=== PATIENT | male | born 1990 | race Caucasian/White ===

== ENCOUNTER 2016-05-06 16:14 | Emergency (ER) | payer OTHER ==
--- NOTE | 2016-05-06 16:56 | EDDOCDS ---
Physician Documentation [facility] Name: Ky Rangel Age: 26 yrs Sex: Male : 1990 Arrival Date: 05/06/2016 Time: 16:14 Bed Triage 3 Private MD: Naz Francis Disposition: 05/06/16 16:38 Discharged to Home/Self Care. Impression: Acute frontal sinusitis, Acute bronchitis. - Condition is Stable. - Discharge Instructions: Acute Bronchitis, Sinusitis, Adult. - Prescriptions for Claritin- D 12 Hour 5-120 mg Oral Tablet Sustained Release 12 hr - take 1 tablet by ORAL route every 12 hours As needed; 30 tablet. Ibuprofen 600 mg Oral Tablet - take 1 tablet by ORAL route every 6 hours As needed take with food; 30 tablet. Moxifloxacin 400 mg Oral Tablet - take 1 tablet by ORAL route once daily; 10 tablet. Albuterol Sulfate 90 mcg/actuation Inhalation HFA Aerosol Inhaler - inhale 2 puff by INHALATION route every 4 hours As needed; 1 Inhaler. - Medication Reconciliation, Local Pharmacy Hours form. - Follow up: Naz Francis; When: 1 week; Reason: Recheck today's complaints, Continuance of care. - Problem is an ongoing problem. - Symptoms are unchanged. Historical: - Allergies: Augmentin; Erythrocin; PENICILLINS; Amoxicillin; - Home Meds: 1. none - PMHx: Grand Mal Seizures; ADHD; Bipolar disorder; OCD; learning disabled; Blackouts; Anxiety; - PSHx: none; - Social history: Smoking status: Patient uses tobacco products, heavy tobacco smoker. No barriers to communication noted, The patient speaks fluent Occitan, Speaks appropriately for age. - Family history: No immediate family members are acutely ill. - : The pt / caregiver states he / she is not on anticoagulants. Home medication list is obtained from the patient. - Exposure Risk Screening:: None identified. Vital Signs: 05/06 16:16 BP 132 / 70; Pulse 96; Resp 18; Temp 98.1(O); Pulse Ox 97% on R/A; Weight 68.04 kg / ct3 150 lbs (R); Height 5 ft. 10 in. (177.80 cm) (R); Pain 10/10; 16:16 Body Mass Index 21.52 (68.04 kg, 177.80 cm) ct3 MDM: 16:47 Financial registration complete. gjjuarez 16:49 [facility] [place] Agreement was scanned into [employer] ([employer]) and attached to record. jose a Signatures: Efe Lynn, RN RN Elliot Hansen, MECHANICAL EXPERT MECHANICAL EXPERT Karyna VailRN RN kc3 Loida Mendoza The chart was reviewed and I authenticate all verbal orders and agree with the evaluation and treatment provided.Attachments: 16:49 [facility] Payment Agreement gjjuarez MTDD
--- NOTE | 2016-05-06 16:56 | EDDOCDS ---
Nurse's Notes [facility] Name: Ky Rangel Age: 26 yrs Sex: Male : 1990 Arrival Date: 05/06/2016 Time: 16:14 Bed Triage 3 Private MD: Naz Francis Diagnosis: Acute frontal sinusitis;Acute bronchitis Presentation: 05/06 16:18 Presenting complaint: Patient states: sharp lower back pain, sore throat, runny nose, kc3 and productive cough x 1 week. Acute neurological deficits are not present. Mechanism of Injury: No Mechanism of Injury. Adult Sepsis Screening: The patient does not have new or worsening altered mentation. Patient's respiratory rate is less than 22. Systolic blood pressure is greater than 100. Patient has a qSOFA score of 0- Negative Sepsis Screen. Suicide/Homicide risk assessment- the patient denies having any suicidal and/or homicidal ideations and does not present with any other emotional, behavioral or mental health complaints. Status: Patient is not a family services assistant or dependent. Transition of care: patient was not received from another setting of care. 16:18 Method Of Arrival: Walkin/Carried/Asstd kc3 16:22 Acuity: OSVALDO Level 3 kc3 Triage Assessment: 16:21 General: Appears uncomfortable, Behavior is appropriate for age, cooperative. Pain: kc3 Location: back Pain currently is 10 out of 10 on a pain scale. HIV screening NA for this visit Offered previously. Neurological: Level of Consciousness is awake, alert, obeys commands, Oriented to person, place, time. Respiratory: Airway is patent Respiratory effort is even, unlabored, Reports cough that is productive, pain with cough. Derm: Skin is pink, warm & dry. Musculoskeletal: Circulation, motion, and sensation intact. Historical: - Allergies: Augmentin; Erythrocin; PENICILLINS; Amoxicillin; - Home Meds: 1. none - PMHx: Grand Mal Seizures; ADHD; Bipolar disorder; OCD; learning disabled; Blackouts; Anxiety; - PSHx: none; - Social history: Smoking status: Patient uses tobacco products, heavy tobacco smoker. No barriers to communication noted, The patient speaks fluent Chinese, Speaks appropriately for age. - Family history: No immediate family members are acutely ill. - : The pt / caregiver states he / she is not on anticoagulants. Home medication list is obtained from the patient. - Exposure Risk Screening:: None identified. Screenin:51 Screening information is obtained from the patient. Fall risk: No risks identified. dwg Assistance ADL's: requires no assistance with activities of daily living. Abuse/DV Screen: The patient / caregiver reports he/she is: not in a situation that causes fear, pain or injury. Nutritional screening: No deficits noted. Advance Directives: Currently, there is no health care proxy. There is no active DNR order. There is no living will. There is no Power of Graining Machine Operator. Advance directive information has not previously been placed in an [facility] medical record. Further advance directive information is declined. home support is adequate. Assessment: 16:50 General: Appears in no apparent distress, Behavior is cooperative. Pain: Pain currently dwg is 5 out of 10 on a pain scale. Neurological: Level of Consciousness is awake, alert, Oriented to person, place, time. Respiratory: Airway is patent Respiratory effort is even, unlabored, Respiratory pattern is regular, symmetrical. Vital Signs: 16:16 BP 132 / 70; Pulse 96; Resp 18; Temp 98.1(O); Pulse Ox 97% on R/A; Weight 68.04 kg (R); ct3 Height 5 ft. 10 in. (177.80 cm) (R); Pain 10/10; 16:16 Body Mass Index 21.52 (68.04 kg, 177.80 cm) ct3 Vitals: 16:16 Log In Time: May 06, 2016 at 16:13. ct3 ED Course: 16:16 Patient visited by Elva Garcia PCA. ct3 16:16 NO PRIMARY PHYSICIAN, . is Private Physician. ct3 16:16 Naz Francis is Private Physician. ct3 16:16 Patient moved to Waiting ct3 16:17 Patient moved to Pre RCE ct3 16:19 Triage Initiated kc3 16:22 Patient moved to Triage 3 rs6 16:23 [facility] ke 16:23 Patient visited by Elliot Albright FNP. ke 16:23 Patient visited by Elliot Albright FNP. ke 16:38 Naz Francis is Referral Physician. ke 16:49 [facility] Payment Agreement was scanned into [employer] and attached to record. gjjuarez 16:51 The patient / caregiver is instructed regarding the plan of care and ED course. dwg 16:51 No IV's were initiated during this patient's visit. No procedures done that require dwg assistance. 16:55 Patient visited by Efe Lynn, VESTA. dwg Order Results: There are currently no results for this order. Outcome: 16:38 Discharge ordered by Provider. ke 16:54 Discharge Assessment: Patient awake, alert and oriented x 3. No cognitive and/or dwg functional deficits noted. Patient verbalized understanding of disposition instructions. patient administered narcotics - no. The following High Risk Discharge criteria are identified: None. Condition: good Condition: stable. No special radiology studies were completed. Property sent home with patient. 16:55 Patient left the ED. dwg Signatures: Efe Lynn, RN RN dwg Elliot Albright, MICROBIOLOGICAL LAB TECHNICIAN MICROBIOLOGICAL LAB TECHNICIAN Elva Meza, BODY MAN BODY MAN ct3 Ton Bonnerca, BODY MAN BODY MAN rs6 Karyna Ng,RN RN Loida Villar banner Corrections: (The following items were deleted from the chart) 16:22 16:18 Acuity: OSVALDO Level 4 kc3 kc3 MTDD
--- NOTE | 2016-05-08 17:56 | EDDOCDS ---
Nurse's Notes [facility] Name: Ky Rangel Age: 26 yrs Sex: Male : 1990 Arrival Date: 05/06/2016 Time: 16:14 Bed Triage 3 Private MD: Naz Francis Diagnosis: Acute frontal sinusitis;Acute bronchitis Presentation: 05/06 16:18 Presenting complaint: Patient states: sharp lower back pain, sore throat, runny nose, kc3 and productive cough x 1 week. Acute neurological deficits are not present. Mechanism of Injury: No Mechanism of Injury. Adult Sepsis Screening: The patient does not have new or worsening altered mentation. Patient's respiratory rate is less than 22. Systolic blood pressure is greater than 100. Patient has a qSOFA score of 0- Negative Sepsis Screen. Suicide/Homicide risk assessment- the patient denies having any suicidal and/or homicidal ideations and does not present with any other emotional, behavioral or mental health complaints. Status: Patient is not a business services clerk or dependent. Transition of care: patient was not received from another setting of care. 16:18 Method Of Arrival: Walkin/Carried/Asstd kc3 16:22 Acuity: OSVALDO Level 3 kc3 Triage Assessment: 16:21 General: Appears uncomfortable, Behavior is appropriate for age, cooperative. Pain: kc3 Location: back Pain currently is 10 out of 10 on a pain scale. HIV screening NA for this visit Offered previously. Neurological: Level of Consciousness is awake, alert, obeys commands, Oriented to person, place, time. Respiratory: Airway is patent Respiratory effort is even, unlabored, Reports cough that is productive, pain with cough. Derm: Skin is pink, warm & dry. Musculoskeletal: Circulation, motion, and sensation intact. Historical: - Allergies: Augmentin; Erythrocin; PENICILLINS; Amoxicillin; - Home Meds: 1. none - PMHx: Grand Mal Seizures; ADHD; Bipolar disorder; OCD; learning disabled; Blackouts; Anxiety; - PSHx: none; - Social history: Smoking status: Patient uses tobacco products, heavy tobacco smoker. No barriers to communication noted, The patient speaks fluent Mohawk, Speaks appropriately for age. - Family history: No immediate family members are acutely ill. - : The pt / caregiver states he / she is not on anticoagulants. Home medication list is obtained from the patient. - Exposure Risk Screening:: None identified. Screenin:51 Screening information is obtained from the patient. Fall risk: No risks identified. dwg Assistance ADL's: requires no assistance with activities of daily living. Abuse/DV Screen: The patient / caregiver reports he/she is: not in a situation that causes fear, pain or injury. Nutritional screening: No deficits noted. Advance Directives: Currently, there is no health care proxy. There is no active DNR order. There is no living will. There is no Power of Laser Beam Machine Operator. Advance directive information has not previously been placed in an [facility] medical record. Further advance directive information is declined. home support is adequate. Assessment: 16:50 General: Appears in no apparent distress, Behavior is cooperative. Pain: Pain currently dwg is 5 out of 10 on a pain scale. Neurological: Level of Consciousness is awake, alert, Oriented to person, place, time. Respiratory: Airway is patent Respiratory effort is even, unlabored, Respiratory pattern is regular, symmetrical. Vital Signs: 16:16 BP 132 / 70; Pulse 96; Resp 18; Temp 98.1(O); Pulse Ox 97% on R/A; Weight 68.04 kg (R); ct3 Height 5 ft. 10 in. (177.80 cm) (R); Pain 10/10; 16:16 Body Mass Index 21.52 (68.04 kg, 177.80 cm) ct3 Vitals: 16:16 Log In Time: May 06, 2016 at 16:13. ct3 ED Course: 16:16 Patient visited by Elva Garcia PCA. ct3 16:16 NO PRIMARY PHYSICIAN, . is Private Physician. ct3 16:16 Naz Francis is Private Physician. ct3 16:16 Patient moved to Waiting ct3 16:17 Patient moved to Pre RCE ct3 16:19 Triage Initiated kc3 16:22 Patient moved to Triage 3 rs6 16:23 [facility]. ke 16:23 Patient visited by Elliot Albright FNP. ke 16:23 Patient visited by Elliot Albright FNP. ke 16:38 Naz Francis is Referral Physician. ke 16:49 [facility] Payment Agreement was scanned into [employer] and attached to record. gjjuarez 16:51 The patient / caregiver is instructed regarding the plan of care and ED course. [facility] 16:51 No IV's were initiated during this patient's visit. No procedures done that require dwg assistance. 16:55 Patient visited by Efe Lynn RN. dwg 05/07 11:51 T-Sheet-- Draft Copy was scanned into [employer] and attached to record. Order Results: There are currently no results for this order. Outcome: 05/06 16:38 Discharge ordered by Provider. ke 16:54 Discharge Assessment: Patient awake, alert and oriented x 3. No cognitive and/or dwg functional deficits noted. Patient verbalized understanding of disposition instructions. patient administered narcotics - no. The following High Risk Discharge criteria are identified: None. Condition: good Condition: stable. No special radiology studies were completed. Property sent home with patient. 16:55 Patient left the ED. g Signatures: Efe Lynn, RN RN [facility] Panchito, Marianela, Reg Reg gb Elliot Albright, NET SOFTWARE ENGINEER NET SOFTWARE ENGINEER Elva Meza, PHARMACY TECHNICIAN PER DIEM PHARMACY TECHNICIAN PER DIEM ct3 Pita Bonner, PHARMACY TECHNICIAN PER DIEM PHARMACY TECHNICIAN PER DIEM rs6 Karyna Ng,VESTA RN amanda3 Loida Mendoza [facility] Corrections: (The following items were deleted from the chart) 16:22 16:18 Acuity: OSVALDO Level 4 kc3 kc3 Chart Complete MTDD
--- NOTE | 2016-05-08 17:56 | EDDOCDS ---
Physician Documentation [facility] Name: Ky Rangel Age: 26 yrs Sex: Male : 1990 Arrival Date: 05/06/2016 Time: 16:14 Bed Triage 3 Private MD: Naz Francis Disposition: 05/06/16 16:38 Discharged to Home/Self Care. Impression: Acute frontal sinusitis, Acute bronchitis. - Condition is Stable. - Discharge Instructions: Acute Bronchitis, Sinusitis, Adult. - Prescriptions for Claritin- D 12 Hour 5-120 mg Oral Tablet Sustained Release 12 hr - take 1 tablet by ORAL route every 12 hours As needed; 30 tablet. Ibuprofen 600 mg Oral Tablet - take 1 tablet by ORAL route every 6 hours As needed take with food; 30 tablet. Moxifloxacin 400 mg Oral Tablet - take 1 tablet by ORAL route once daily; 10 tablet. Albuterol Sulfate 90 mcg/actuation Inhalation HFA Aerosol Inhaler - inhale 2 puff by INHALATION route every 4 hours As needed; 1 Inhaler. - Medication Reconciliation, Local Pharmacy Hours form. - Follow up: Naz Francis; When: 1 week; Reason: Recheck today's complaints, Continuance of care. - Problem is an ongoing problem. - Symptoms are unchanged. Historical: - Allergies: Augmentin; Erythrocin; PENICILLINS; Amoxicillin; - Home Meds: 1. none - PMHx: Grand Mal Seizures; ADHD; Bipolar disorder; OCD; learning disabled; Blackouts; Anxiety; - PSHx: none; - Social history: Smoking status: Patient uses tobacco products, heavy tobacco smoker. No barriers to communication noted, The patient speaks fluent Thai, Speaks appropriately for age. - Family history: No immediate family members are acutely ill. - : The pt / caregiver states he / she is not on anticoagulants. Home medication list is obtained from the patient. - Exposure Risk Screening:: None identified. Vital Signs: 05/06 16:16 BP 132 / 70; Pulse 96; Resp 18; Temp 98.1(O); Pulse Ox 97% on R/A; Weight 68.04 kg / ct3 150 lbs (R); Height 5 ft. 10 in. (177.80 cm) (R); Pain 10/10; 16:16 Body Mass Index 21.52 (68.04 kg, 177.80 cm) ct3 MDM: 16:47 Financial registration complete. gjb 16:49 [facility] Payment Agreement was scanned into [employer] and attached to record. gjb 05/07 11:51 T-Sheet-- Draft Copy was scanned into [employer] and attached to record. gb Signatures: Efe Lynn, RN RN Marianela Metcalf, Reg Reg gb Elliot Albright, Karyna Fermin RN RN kc3 Loida Mendoza The chart was reviewed and I authenticate all verbal orders and agree with the evaluation and treatment provided.Attachments: 05/06 16:49 [facility] Payment Agreement gjb 05/07 11:51 T-Sheet-- Draft Copy gb Chart Complete MTDD
--- NOTE | 2016-05-08 17:56 | EDDOCDS ---
Physician Documentation [facility] Name: Ky Rangel Age: 26 yrs Sex: Male : 1990 Arrival Date: 05/06/2016 Time: 16:14 Bed Triage 3 Private MD: Naz Francis Disposition: 05/06/16 16:38 Discharged to Home/Self Care. Impression: Acute frontal sinusitis, Acute bronchitis. - Condition is Stable. - Discharge Instructions: Acute Bronchitis, Sinusitis, Adult. - Prescriptions for Claritin- D 12 Hour 5-120 mg Oral Tablet Sustained Release 12 hr - take 1 tablet by ORAL route every 12 hours As needed; 30 tablet. Ibuprofen 600 mg Oral Tablet - take 1 tablet by ORAL route every 6 hours As needed take with food; 30 tablet. Moxifloxacin 400 mg Oral Tablet - take 1 tablet by ORAL route once daily; 10 tablet. Albuterol Sulfate 90 mcg/actuation Inhalation HFA Aerosol Inhaler - inhale 2 puff by INHALATION route every 4 hours As needed; 1 Inhaler. - Medication Reconciliation, Local Pharmacy Hours form. - Follow up: Naz Francis; When: 1 week; Reason: Recheck today's complaints, Continuance of care. - Problem is an ongoing problem. - Symptoms are unchanged. Historical: - Allergies: Augmentin; Erythrocin; PENICILLINS; Amoxicillin; - Home Meds: 1. none - PMHx: Grand Mal Seizures; ADHD; Bipolar disorder; OCD; learning disabled; Blackouts; Anxiety; - PSHx: none; - Social history: Smoking status: Patient uses tobacco products, heavy tobacco smoker. No barriers to communication noted, The patient speaks fluent Portuguese, Speaks appropriately for age. - Family history: No immediate family members are acutely ill. - : The pt / caregiver states he / she is not on anticoagulants. Home medication list is obtained from the patient. - Exposure Risk Screening:: None identified. Vital Signs: 05/06 16:16 BP 132 / 70; Pulse 96; Resp 18; Temp 98.1(O); Pulse Ox 97% on R/A; Weight 68.04 kg / ct3 150 lbs (R); Height 5 ft. 10 in. (177.80 cm) (R); Pain 10/10; 16:16 Body Mass Index 21.52 (68.04 kg, 177.80 cm) ct3 MDM: 16:47 Financial registration complete. gjb 16:49 [facility] Payment Agreement was scanned into [employer] and attached to record. gjb 05/07 11:51 T-Sheet-- Draft Copy was scanned into [employer] and attached to record. gb Signatures: Efe Lynn, RN RN Marianela Metcalf, Reg Reg gb Elliot Albright, Karyna Fermin RN RN kc3 Loida Mendoza The chart was reviewed and I authenticate all verbal orders and agree with the evaluation and treatment provided.Attachments: 05/06 16:49 [facility] Payment Agreement gjb 05/07 11:51 T-Sheet-- Draft Copy gb Chart Complete MTDD
== END 2016-05-06 16:55 | disposition home or self-care (01) ==
LOC: M ED 16:14
DX: J20.9 Acute bronchitis, unspecified (principal); J01.90 Acute sinusitis, unspecified; G40.909 Epilepsy, unspecified, not intractable, without status epilepticus; F90.9 Attention-deficit hyperactivity disorder, unspecified type; F31.9 Bipolar disorder, unspecified; F42.9 Obsessive-compulsive disorder, unspecified; F41.9 Anxiety disorder, unspecified; F17.210 Nicotine dependence, cigarettes, uncomplicated; Z88.0 Allergy status to penicillin; Z88.1 Allergy status to other antibiotic agents

== ENCOUNTER 2016-10-16 21:58 | Emergency (ER) | payer OTHER ==
[~2016-10-16] VITALS: Ht 175.3 cm; Wt 65.0 kg
[2016-10-16 21:59] VITALS: BP 130/72
== END 2016-10-16 23:20 | disposition left against medical advice (07) ==
LOC: M ED 23:19
DX: J02.9 Acute pharyngitis, unspecified (principal); Z53.29 Procedure and treatment not carried out because of patient's decision for other reasons

== ENCOUNTER 2019-11-21 00:30 | Emergency (ER) | payer MEDICAID ==
[~2019-11-21 00:30] MED LIST: DEPA250T32 PO; LEXA1TAB PO
[2019-12-25 13:57] LABS: HEMATOCRIT 44.7 % (42.0-52.0); HEMOGLOBIN 14.9 g/dl (13.5-17.5); MEAN CORPUSCULAR HGB CONC 33.3 g/dl (32.0-36.5); MEAN CORPUSCULAR VOLUME 93.1 fl (80.0-96.0); PLATELET COUNT, AUTOMATED 183 10^3/uL (150-450); WHITE BLOOD COUNT 13.9 10^3/uL (4.0-10.0)
[2019-12-27 10:13] LABS: ALBUMIN 3.7 GM/DL (3.2-5.2); ALT/SGPT 17 IU/L (0-32); BILIRUBIN,TOTAL 0.6 MG/DL (0.2-1.0); BLOOD UREA NITROGEN 13 MG/DL (7-18); CALCIUM LEVEL 8.8 MG/DL (8.5-10.1); CARBON DIOXIDE LEVEL 29 mmol/L (20-29); CHLORIDE LEVEL 104 MEQ/L (98-107); CREATININE FOR GFR 1.11 MG/DL (0.70-1.30); GLOMERULAR FILTRATION RATE > 60.0 (>60); GLUCOSE, FASTING 99 MG/DL (70-100); POTASSIUM SERUM 3.9 MEQ/L (3.5-5.1); SODIUM LEVEL 140 MEQ/L (136-145); TOTAL PROTEIN 7.4 GM/DL (6.4-8.2)
[2019-12-27 10:14] LABS: ACETAMINOPHEN LEVEL < 2.0 UG/ML (10.0-30.0); ETHYL ALCOHOL (ETHANOL) < 0.003 % (0.000-0.010); SALICYLATE LEVEL 3.2 MG/DL (5.0-30.0)
== END 2019-11-21 07:28 | disposition home or self-care (01) ==
LOC: M ED 00:30
DX: F43.20 Adjustment disorder, unspecified (principal); F99 Mental disorder, not otherwise specified; F17.210 Nicotine dependence, cigarettes, uncomplicated; Z88.0 Allergy status to penicillin; Z88.1 Allergy status to other antibiotic agents
CPT/HCPCS: 36415; 80053; 80307; 84443; 85027; 99284; G0480

== ENCOUNTER 2021-04-01 16:23 | Emergency (ER) | payer MEDICAID ==
[~2021-04-01] VITALS: Ht 180.3 cm; Wt 65.6 kg
--- OUTSIDE RECORDS SUMMARY | 2021-04-01 16:31 | CCD ---
Author Author [facility] Organization [facility] Address Unknown Phone Unavailable Support Name Relationship Address Phone Prakash Melendez MD Next Of Kin [address] [place] [address] Sally Dillon Next Of Kin Unknown Unavailable SALLY CUNNINGHAM Next Of Kin [address] [place] [address] JESSERené [place] [address] UYuri Next Of Kin Unknown Unavailable RED CUNNINGHAM Next Of Kin [address] [place] [address] MARISAPaul Next Of Kin [address] [place] [address] Re-disclosure Warning The records that you are about to access may contain information from federally-assisted alcohol or drug abuse programs. If such information is present, then the following federally mandated warning applies: This information has been disclosed to you from records protected by federal confidentiality rules (42 CFR part 2). The federal rules prohibit you from making any further disclosure of this information unless further disclosure is expressly permitted by the written consent of the person to whom it pertains or as otherwise permitted by 42 CFR part 2. A general authorization for the release of medical or other information is NOT sufficient for this purpose. The Federal rules restrict any use of the information to criminally investigate or prosecute any alcohol or drug abuse patient.The records that you are about to access may contain highly sensitive health information, the redisclosure of which is protected by Article 27-F of the [facility] Public Health law. If you continue you may have access to information: Regarding HIV / AIDS; Provided by facilities licensed or operated by the [facility] Office of Mental Health; or Provided by the [facility] Office for People With Developmental Disabilities. If such information is present, then the following [facility] mandated warning applies: This information has been disclosed to you from confidential records which are protected by state law. State law prohibits you from making any further disclosure of this information without the specific written consent of the person to whom it pertains, or as otherwise permitted by law. Any unauthorized further disclosure in violation of state law may result in a fine or retirement sentence or both. A general authorization for the release of medical or other information is NOT sufficient authorization for further disc losure. Medications No Information Insurance Providers Payer name Policy type / Coverage type Policy ID Covered libertarian ID Covered libertarian's relationship to albert Policy [place] [id number] SP [id number] C [id number] SP [id number] Managed Care [facility] Community Plan P [id number] S [id number] Medicaid S [id number] SELF PAY ONLY [id number] SP [id number] MEDICAID [id number] SP [id number] [facility] [id number] SP [id number] [facility] [id number] SP [id number] [facility] [id number] SP [id number] Managed Care - Community Plan [facility] P [id number] S [id number] SELF PAY UNAVAILABLE SP UNAVAILA BLE Problems, Conditions, and Diagnoses No Information Surgeries/Procedures No Information Results No Information Social History No Information
[2021-04-01 17:12] VITALS: BP 150/86
[2021-04-01 18:12] LABS: RSV AMPLIFICATION NEGATIVE (NEGATIVE)
--- OUTSIDE RECORDS SUMMARY | 2021-04-01 18:22 | CCD ---
Author Author [facility] Organization [facility] Address Unknown Phone Unavailable Support Name Relationship Address Phone Prakash Melendez MD Next Of Kin [address] [place] [address] Sally Dillon Next Of Kin Unknown Unavailable SALLY CUNNINGHAM Next Of Kin [address] [place] [address] JESSERené [place] [address] UYuri Next Of Kin Unknown Unavailable RED CUNNINGHAM Next Of Kin [address] [place] [address] MARISAPaul Next Of Kin [address] [place] [address] Re-disclosure Warning The records that you are [...] is protected by Article 27-F of the [facility] Public Health law. If you continue you may have access to information: Regarding HIV / AIDS; Provided by facilities licensed or operated by the [facility] Office of Mental Health; or Provided by the [facility] Office for People With Developmental Disabilities. If such information is present, then the following [facility] mandated warning applies: This information has [...] law may result in a fine or nursing home sentence or both. A general authorization for the release of medical or other information is NOT sufficient authorization for further disc losure. Medications No Information Insurance Providers Payer name Policy type / Coverage type Policy ID Covered alliance party ID Covered alliance party's relationship to albert Policy [place] [id number] Managed Care [facility] Community Plan P [id number] S [id number] Medicaid S [id number] SELF PAY ONLY [id number] SP [id number] MEDICAID [id number] SP [id number] [facility] [id number] SP [id number] [facility] [id number] SP [id number] [facility] [id number] SP [id number] Managed Care - Community Plan [facility] P [id number] S [id number] SELF PAY UNAVAILABLE SP UNAVAILA BLE Problems, Conditions, and Diagnoses No Information Surgeries/Procedures No Information Results No Information Social History No Information
== END 2021-04-01 17:59 | disposition left against medical advice (07) ==
LOC: M ED 16:23
DX: Z53.21 Procedure and treatment not carried out due to patient leaving prior to being seen by health care provider (principal)

== ENCOUNTER 2024-05-01 17:05 | Emergency (ER) | payer MEDICAID ==
[~2024-05-01] VITALS: Ht 180.3 cm; Wt 63.2 kg
[2024-05-01] MEDS: ACETAMINOPHEN 500 MG TAB PO ONE (18:30)
[2024-05-01] MEDS: LIDOCAINE VISCOUS 2% SOLN 15ML UDC SSP ONE (20:14)
[2024-05-01 20:50] VITALS: BP 150/98; TEMP 98; O2SAT 98
[2024-05-01] MEDS ORDERED: CLEO300C2 PO (20:53)
[2024-05-01] MEDS ORDERED: MELO7.5T35 PO (20:54)
[2024-05-01] MEDS: CLINDAMYCIN 150MG CAPSULE PO ONE (21:26)
== END 2024-05-01 21:28 | disposition home or self-care (01) ==
LOC: M ED 17:05
DX: K04.7 Periapical abscess without sinus (principal); F12.10 Cannabis abuse, uncomplicated; Z79.2 Long term (current) use of antibiotics; Z79.899 Other long term (current) drug therapy; Z88.0 Allergy status to penicillin; Z88.1 Allergy status to other antibiotic agents; Z91.030 Bee allergy status

== ENCOUNTER → 2025-02-24 | Outpatient (REF) | payer MEDICAID ==
[~2025-02-24] MED LIST changes: +CLEO300C2 PO; -DEPA250T32 PO; +DIVA-65 PO; +MELO7.5T35 PO
[2025-02-24 15:02] LABS: ALT/SGPT 12 U/L (7.0-40); AST/SGOT 18 U/L (<34); CALCIUM LEVEL 9.8 MG/DL (8.5-10.1); CARBON DIOXIDE LEVEL 29 MMOL/L (20-31); CHLORIDE LEVEL 105 MMOL/L (98-107); CHOLESTEROL LEVEL 151 MG/DL (<200); CHOLESTEROL RISK RATIO 3.86 (<5); CREATININE FOR GFR 1.03 MG/DL (0.70-1.30); GLOMERULAR FILTRATION RATE > 90.0 (>60); LDL CHOLESTEROL 90.3 MG/DL (<100); NON-HDL-C 111.9 MG/DL; POTASSIUM SERUM 4.3 MMOL/L (3.5-5.1); SODIUM LEVEL 142 MMOL/L (136-145); TRIGLYCERIDES LEVEL 108 MG/DL (<150)
[2025-02-24 15:06] LABS: FREE T4 1.25 NG/DL (0.89-1.76)
== END ==
LOC: M LAB REF 14:06
PROVIDERS: ATTEND Family Medicine Addiction Medicine
DX: Z13.228 Encounter for screening for other metabolic disorders (principal)

== ENCOUNTER → 2025-03-02 | Outpatient (REF) | payer MEDICAID ==
[2025-03-02 16:44] LABS: PLATELET COUNT, AUTOMATED 255 10^3/uL (150-450)
[2025-03-02 17:24] LABS: HIV 1&2 SCREEN NEGATIVE (NEGATIVE)
[2025-03-02 17:28] LABS: Trichomonas vaginalis (AMP) NOT DETECTED (NEGATIVE)
[2025-03-02 17:31] LABS: HEPATITIS C VIRUS ABY INDEX < 0.02 INDEX (<0.8)
[2025-03-02 17:51] LABS: GC DNA AMPLIFICATION NEGATIVE (NEGATIVE)
== END ==
LOC: M LAB REF 16:13
PROVIDERS: ATTEND Family Medicine Addiction Medicine
DX: Z11.3 Encounter for screening for infections with a predominantly sexual mode of transmission (principal)